=== PATIENT | male | born 1950 | race Caucasian/White ===

== ENCOUNTER 2016-03-28 13:18 | Outpatient (RCR) | payer MEDICARE, OTHER | END 2016-06-26 | disposition home or self-care (01) | LOC: ONC 13:18 | PROVIDERS: ATTEND Radiology Radiation Oncology | DX: C61 Malignant neoplasm of prostate (principal) | CPT/HCPCS: 99214 ==

== ENCOUNTER 2017-11-07 10:27 | Outpatient (RCR) | payer MEDICARE, OTHER ==
[2017-11-07 13:11] LABS: BUN/CREATININE RATIO 17; CREATININE SERUM 1.07 MG/DL (0.60-1.30); GFR ESTIMATED > 60
== END 2017-11-09 | disposition home or self-care (01) ==
LOC: ONC 10:27
PROVIDERS: ATTEND Radiology Radiation Oncology
DX: C61 Malignant neoplasm of prostate (principal)
CPT/HCPCS: 36415; 76873; 82565; 84520; 99203

== ENCOUNTER → 2017-11-16 | Outpatient (CLI) | payer MEDICARE, OTHER ==
[~2017-11-16] MED LIST: CATHETER FLUSH 10 ML SYR IV PRN
--- NOTE | 2017-11-16 12:42 | Diagnostic Imaging Report ---
PROCEDURE: CT abdomen and pelvis with and without contrast. TECHNIQUE: Precontrast acquisitions were acquired through the abdomen and pelvis. Multiple contiguous axial images were obtained through the abdomen and pelvis after the administration of intravenous contrast. INDICATION: Prostate carcinoma. COMPARISON: No prior studies are available for comparison. FINDINGS: The lung bases are clear of acute infiltrates. There is calcified granuloma in the lingula. The liver demonstrates mild generalized low density consistent with hepatic steatosis. No discrete liver mass is identified. The gallbladder is unremarkable. The pancreas and spleen are unremarkable. No adrenal mass is identified. The kidneys are unremarkable. Aorta is heavily calcified but nonaneurysmal. No central, retroperitoneal or mesenteric lymphadenopathy is identified. Bowel loops are normal caliber. No obstruction is seen. There is no ascites. The bladder is decompressed but unremarkable. Prostate is unremarkable. There are fat containing bilateral inguinal hernias. No iliac or inguinal lymphadenopathy is seen. Bony structures are unremarkable. IMPRESSION: 1. Hepatic steatosis. 2. Bilateral fat-containing inguinal hernias. 3. No findings to suggest metastatic disease. Dictated by: Dictated on workstation # [id number]
--- NOTE | 2017-11-16 14:42 | Diagnostic Imaging Report ---
INDICATION: Newly diagnosed prostate carcinoma. TECHNIQUE: Patient was administered 27.0 mCi technetium 99m MDP intravenously and whole-body imaging was performed after a three-hour delay. COMPARISON: No prior whole body bone scans are available for comparison. FINDINGS: There is normal uptake of activity by the axial and appendicular skeleton. There is uptake by both kidneys with excretion into the urinary bladder. Mild uptake in the right midfoot and involving the right first MTP joint is noted. This is noted to lesser degree in the left foot and is likely degenerative. No foci to suggest osseous metastatic disease are identified. IMPRESSION: No scintigraphic evidence of osseous metastatic disease. Dictated by: Dictated on workstation # [id number]
== END ==
LOC: CARD 10:31
PROVIDERS: ATTEND Nurse Practitioner Family
DX: C61 Malignant neoplasm of prostate (principal); K76.0 Fatty (change of) liver, not elsewhere classified; K40.20 Bilateral inguinal hernia, without obstruction or gangrene, not specified as recurrent
CPT/HCPCS: 74178; 78306

== ENCOUNTER 2017-12-27 11:09 | Outpatient (CLI) | payer MEDICARE, OTHER ==
[~2017-12-27] VITALS: Ht 165.1 cm; Wt 86.2 kg
[2017-12-27] MEDS ORDERED: BUDE10.2 IH (11:23)
[2017-12-27] MEDS ORDERED: ASPI-586 PO (11:23)
[2017-12-27] MEDS ORDERED: RT-ALBUINH IH (11:23)
[2017-12-27] MEDS ORDERED: OMEP20TA7 PO (11:23)
[2017-12-27] MEDS ORDERED: PRAV20TA3 PO (11:23)
[2017-12-27] MEDS ORDERED: TIOT18CA2 IH (11:23)
== END 2017-12-27 12:17 | disposition home or self-care (01) ==
LOC: PREOP 11:09
PROVIDERS: ATTEND Radiology Radiation Oncology
DX: Z01.818 Encounter for other preprocedural examination (principal)
CPT/HCPCS: 87081

== ENCOUNTER 2018-01-02 11:30 | Day surgery (SDC) | payer MEDICARE, OTHER ==
[~2018-01-02] VITALS: Ht 165.1 cm; Wt 86.2 kg
[~2018-01-02 11:30] MED LIST changes: +ASPI-586 PO; +BUDE10.2 IH; -CATHETER FLUSH 10 ML SYR IV PRN; +OMEP20TA7 PO; +PRAV20TA3 PO; +RT-ALBUINH IH; +TIOT18CA2 IH
[2018-01-02] MEDS ORDERED: LEVOFLOXACIN 500 MG/100 ML IV 100 ML IV ONE (11:45)
--- NOTE | 2018-01-02 11:48 | Progress Note-Pre Operative ---
Pre-Operative Progress Note H&P Reviewed The H&P was reviewed, patient examined and no changes noted. Date Seen by Provider: Jan 02, 2018 Time Seen by Provider: 11:47 Date H&P Reviewed: Jan 02, 2018 Time H&P Reviewed: 11:47 Pre-Operative Diagnosis: Prostate cancer cT1c, PSA 17.6, [place] 7 (4+3) SARAH CANCHOLA MD Jan 02, 2018 11:48
[2018-01-02] MEDS ORDERED: CIPR-226 PO (11:51)
[2018-01-02] MEDS ORDERED: ACET1TAB43 PO (11:51)
--- NOTE | 2018-01-02 11:53 | Discharge Inst-Simple/Standard ---
Discharge Inst-Standard Discharge Medications New, Converted or Re-Newed RX: RX Given to Pt/Family Patient Instructions/Follow Up Plan of Care/Instructions/FU: 1)Follow up with Dr. Coello on February 04 at 3:00 p.m. 2)Follow up at [facility] on January 30 at 10:30 a.m. for post implant scan. Activity as Tolerated: Yes Discharge Diet: No Restrictions, Regular Diet Other Inst to Patient 1)Please instruct patient/family on maldonado catheter removal. To be done on Thursday 01/04 or Sunday 01/[address] Coello. 2)If patient does not wish to remove catheter please make arrangements at Dr. Coello's office . SARAH CANCHOLA MD Jan 02, 2018 11:53
[2018-01-02 12:00] VITALS: BP 143/97
[2018-01-02] MEDS: LACTATED RINGERS 1,000 ML IV PRN ×2 (13:20→15:05)
[2018-01-02] MEDS ORDERED: fentaNYL INJECTION 100 MCG/2 ML AMP ONE ×2 (14:08→14:45)
[2018-01-02] MEDS ORDERED: MIDAZOLAM 2 MG/2 ML (VERSED) VIAL ONE (14:09)
[2018-01-02] MEDS ORDERED: ONDANSETRON 4 MG/2 ML (SDV) Z0FRAN ONE (14:27)
[2018-01-02] MEDS ORDERED: DEXAMETHASONE 10 MG/ML (DECADRON) 1 ML VIAL ONE (14:27)
[2018-01-02] MEDS ORDERED: LIDOCAINE PF 2% 5 ML (XYLOCAINE) VIAL ONE (14:27)
[2018-01-02] MEDS ORDERED: proPOfol 200 MG/20 ML (DIPRIVAN) VIAL IV ONE (14:27)
[2018-01-02] MEDS ORDERED: SEVOFLURANE (ULTANE) 15 ML INHAL SOLN ONE ×5 (14:27→15:37)
--- NOTE | 2018-01-02 16:23 | Diagnostic Imaging Report ---
INDICATION: Fluoroscopy for brachytherapy. FINDINGS: Fluoroscopy was provided during prostate brachytherapy. 8 seconds of fluoroscopy was utilized. Single image over the low pelvis shows multiple radiation seed implants within the prostate. IMPRESSION: Fluoroscopy for brachytherapy. Dictated by: Dictated on workstation # [id number]
--- NOTE | 2018-01-02 16:25 | Progress Note-Post Operative ---
Post-Operative Progess Note Surgeon (s)/Email Marketing Specialist (s) Surgeon SARAH CANCHOLA MD Email Marketing Specialist: Viji EDMONDS MD Pre-Operative Diagnosis Prostate cancer cT1c, PSA 17.6, [place] 7 (4+3) Post-Operative Diagnosis Same as pre-op Procedure & Operative Findings Date of Procedure 01/02/18 Procedure Performed/Findings 67% Cesium 131 permanent prostate seed implant, cystogram, and insertion of biodegradable hydrogel prostate-rectal spacer utilizing the Emulate system Prostate volume 20.76 cc Anesthesia Type General Estimated Blood Loss Estimated blood loss (mL): Minimal Specimens/Packing Specimens Removed None Packing: None SARAH CANCHOLA MD Jan 02, 2018 16:25
[2018-01-02 16:45] VITALS: BP 139/77
[2018-01-02 17:15] VITALS: BP 140/75
--- NOTE | 2018-01-02 17:38 | Anesthesia-General Post-Op ---
General Patient Condition Mental Status/LOC: Same as Preop Cardiovascular: Satisfactory Nausea/Vomiting: Absent Respiratory: Satisfactory Pain: Controlled Complications: Absent Post Op Complications Complications None Follow Up Care/Instructions Patient Instructions None needed. Anesthesia/Patient Condition Patient Condition Patient is doing well, no complaints, stable vital signs, no apparent adverse anesthesia problems. No complications reported per nursing. UMAIR BURNETT CRNA Jan 02, 2018 17:37
[2018-01-02 18:00] VITALS: BP 138/76
[2018-01-02 18:15] VITALS: BP 138/76
== END 2018-01-02 18:15 | disposition home or self-care (01) ==
LOC: SDC 11:30
PROVIDERS: ATTEND Radiology Radiation Oncology
DX: C61 Malignant neoplasm of prostate (principal); Z95.1 Presence of aortocoronary bypass graft; Z95.5 Presence of coronary angioplasty implant and graft; J44.9 Chronic obstructive pulmonary disease, unspecified; E78.00 Pure hypercholesterolemia, unspecified; I25.10 Atherosclerotic heart disease of native coronary artery without angina pectoris; Z79.82 Long term (current) use of aspirin; Z79.899 Other long term (current) drug therapy; E78.5 Hyperlipidemia, unspecified; Z87.891 Personal history of nicotine dependence; E66.9 Obesity, unspecified; Z98.1 Arthrodesis status; K21.9 Gastro-esophageal reflux disease without esophagitis; Z68.31 Body mass index [BMI] 31.0-31.9, adult
CPT/HCPCS: 76965; 77290; 77318; 77332; 77370; 77470; 77778

== ENCOUNTER 2018-03-29 09:18 | Outpatient (RCR) | payer MEDICARE, OTHER ==
[~2018-03-29 09:18] MED LIST changes: +ACET1TAB43 PO; +CIPR-226 PO
== END 2018-03-31 | disposition home or self-care (01) ==
LOC: ONC 09:18
PROVIDERS: ATTEND Radiology Radiation Oncology
DX: Z51.0 Encounter for antineoplastic radiation therapy (principal); C61 Malignant neoplasm of prostate; J44.9 Chronic obstructive pulmonary disease, unspecified; I25.10 Atherosclerotic heart disease of native coronary artery without angina pectoris; E78.5 Hyperlipidemia, unspecified; K21.9 Gastro-esophageal reflux disease without esophagitis; E66.9 Obesity, unspecified; Z68.31 Body mass index [BMI] 31.0-31.9, adult; Z79.82 Long term (current) use of aspirin; Z79.899 Other long term (current) drug therapy; Z87.891 Personal history of nicotine dependence; Z98.1 Arthrodesis status; Z95.1 Presence of aortocoronary bypass graft; Z95.5 Presence of coronary angioplasty implant and graft
CPT/HCPCS: 77290; 77300; 77301; 77331; 77334; 77336; 77338; 77385

== ENCOUNTER 2018-05-28 13:02 | Outpatient (RCR) | payer MEDICARE, OTHER | END 2018-06-30 | disposition home or self-care (01) | LOC: ONC 13:02 | PROVIDERS: ATTEND Radiology Radiation Oncology | DX: Z51.0 Encounter for antineoplastic radiation therapy (principal); C61 Malignant neoplasm of prostate | CPT/HCPCS: 36415; 77336; 77385; 84153 ==

== ENCOUNTER 2018-11-28 09:11 | Outpatient (RCR) | payer MEDICARE, OTHER | END 2019-02-26 | disposition home or self-care (01) | LOC: ONC 09:11 | PROVIDERS: ATTEND Radiology Radiation Oncology | DX: C61 Malignant neoplasm of prostate (principal) | CPT/HCPCS: 36415; 84153 ==

== ENCOUNTER 2019-05-29 08:50 | Outpatient (RCR) | payer MEDICARE, OTHER | END 2019-08-27 | disposition home or self-care (01) | LOC: ONC 08:50 | PROVIDERS: ATTEND Radiology Radiation Oncology | DX: C61 Malignant neoplasm of prostate (principal) | CPT/HCPCS: 84153 ==

== ENCOUNTER → 2019-11-20 | Outpatient (CLI) | payer MEDICARE, OTHER | LOC: EDSTATUS 08-28 09:01 → ONC 09:01 | PROVIDERS: ATTEND Radiology Radiation Oncology | DX: C61 Malignant neoplasm of prostate (principal) | CPT/HCPCS: 84153 ==

== ENCOUNTER → 2020-05-19 | Outpatient (CLI) | payer MEDICARE, OTHER | LOC: ONC 10:17 | PROVIDERS: ATTEND Radiology Radiation Oncology | DX: C61 Malignant neoplasm of prostate (principal) | CPT/HCPCS: 84153 ==

== ENCOUNTER → 2020-12-03 | Outpatient (CLI) | payer MEDICARE, OTHER | LOC: ONC 10:01 | PROVIDERS: ATTEND Radiology Radiation Oncology | DX: C61 Malignant neoplasm of prostate (principal) | CPT/HCPCS: 84153 ==